=== PATIENT | male | born 1960 | race Caucasian/White ===

== ENCOUNTER 2019-10-19 14:30 | Emergency (ER) | payer OTHER ==
[~2019-10-19] VITALS: Ht 172.7 cm; Wt 74.8 kg
[2019-10-19] MEDS ORDERED: CRESTOR40 MG (14:44)
[2019-10-19] MEDS ORDERED: CARVEDILOL ER40 MG (14:44)
[2019-10-19] MEDS ORDERED: ASPIR 8181 MG (14:44)
[2019-10-19] MEDS ORDERED: LASIX20 MG (14:44)
[2019-10-19] MEDS ORDERED: ALDACTONE25 MG (14:45)
== END 2019-10-19 19:34 | disposition home or self-care (01) ==
LOC: ER 14:30 → CPU-OBS 15:38 → ER 19:34
DX: R06.02 Shortness of breath (principal); R07.89 Other chest pain; I16.1 Hypertensive emergency; I10 Essential (primary) hypertension; Z95.0 Presence of cardiac pacemaker
CPT/HCPCS: G0378; G0379; 93005

== ENCOUNTER 2020-09-24 11:10 | Emergency (ER) | payer OTHER ==
[~2020-09-24] VITALS: Ht 175.3 cm; Wt 72.6 kg
[~2020-09-24 11:10] MED LIST: ALDACTONE25 MG; ASPIR 8181 MG; CARVEDILOL ER40 MG; CRESTOR40 MG; LASIX20 MG
[2020-09-24] MEDS ORDERED: ZESTRIL10 M1 PO (11:21)
[2020-09-24] MEDS ORDERED: CARVEDILOL ER40 MG (11:21)
[2020-09-24] MEDS ORDERED: TESSALON PERLE100 M1 PO (14:39)
[2020-09-24] MEDS ORDERED: ZYRTEC10 M3 PO (14:39)
== END 2020-09-24 14:47 | disposition home or self-care (01) ==
LOC: ER 11:10
DX: B34.9 Viral infection, unspecified (principal); Z11.52 Encounter for screening for COVID-19